=== PATIENT | female | born 1955 | race Caucasian/White ===

== ENCOUNTER → 2020-03-26 16:06 | Outpatient (CLI) | payer BC, MEDICARE, SELFPAY ==
--- NOTE | 2020-03-26 16:09 | CA_ITS ---
APPROVED REPORT Left Lower Extremity Venous Study for DVT. Welt Stitcher: FOREIGN WatkinsT Indications Lower Extremity Pain: Left History of Smoking KNOT POST LT CALF X SEVERAL DAYS,NKI Vein Imaging CFV (L): compressive, spontaneous, phasic, augmentation FEM (L): compressive, spontaneous, phasic, augmentation POP (L): compressive, spontaneous, phasic, augmentation PTV (L): Compressible GSV (L): Compressible Peroneals (L):Compressible GAS (L): Compressible Findings Study suggests no evidence of DVT of the left lower extremity. A SVT is seen posterior mid calf. Conclusion Study suggests no evidence of DVT of the left lower extremity. A SVT is seen posterior mid calf. Critical Notification Physician Notified Date: 03/26/2020 Time: 16:32 Physician Name: Brandy Colorado Electronically signed by : Kei Yuan MD 03/27/2020 15:42:09
== END ==
PROVIDERS: PCP Nurse Practitioner; Visit Provider Nurse Practitioner
DX: M79.662 Pain in left lower leg (principal)
CPT/HCPCS: 93971

== ENCOUNTER → 2020-09-03 15:13 | Outpatient (CLI) | payer BC, MEDICARE, SELFPAY ==
--- NOTE | 2020-09-03 | CA_ITS ---
APPROVED REPORT Left Lower Extremity Venous Study for DVT. Quality Cloth Tester: Belkis Covarrubias, FOREIGNT Indications Lower Extremity Pain: Left Varicose Veins Current Smoker PALPABLE KNOT MEDIAL LEFT KNEE Risk Factors Prior Phlebitis/DVT Current Smoker Past History SVT : Left Vein Imaging CFV (L): compressive, spontaneous, phasic, augmentation FEM (L): compressive, spontaneous, phasic, augmentation POP (L): compressive, spontaneous, phasic, augmentation PTV (L): Compressible GSV (L): Compressible Peroneals (L):Compressible GAS (L): Compressible Findings Study suggests no evidence of DVT of the left lower extremity. Study suggets an SVT in a superficial varicose vein located medial left knee. Conclusion Study suggests no evidence of DVT of the left lower extremity. Study suggets an SVT in a superficial varicose vein located medial left knee. Critical Notification Physician Notified Date: 09/03/2020 Time: 15:58 Physician Name: Annie Colorado Electronically signed by : Kei Yuan MD 09/03/2020 17:41:08
== END ==
PROVIDERS: PCP Family Medicine; Visit Provider Nurse Practitioner
DX: M25.562 Pain in left knee (principal); M79.605 Pain in left leg
CPT/HCPCS: 93971

== ENCOUNTER → 2022-07-02 15:00 | Outpatient (CLI) | payer MEDICARE, OTHER, SELFPAY | PROVIDERS: PCP Nurse Practitioner; Visit Provider Nurse Practitioner | DX: N30.01 Acute cystitis with hematuria (principal); B96.29 Other Escherichia coli [E. coli] as the cause of diseases classified elsewhere | CPT/HCPCS: 87086; 87088; 87186 ==

== ENCOUNTER → 2022-07-29 13:50 | Outpatient (CLI) | payer MEDICARE, OTHER, SELFPAY ==
[2022-07-29 17:31] LABS: Basophils # 0.1 K/mm3 (0-0.2); Basophils % 0.9 % (0.1-2.0); Eosinophils # 0.2 K/mm3 (0.0-0.4); Eosinophils % 1.4 % (0.1-12.0); Hematocrit 43.7 % (37.0-47.0); Hemoglobin 14.4 g/dL (12.2-16.2); Lymphocytes # 3.1 K/mm3 (0.7-4.5); Lymphocytes % 25.4 % (10-50); Mean Corpuscular HGB Conc 32.9 g/dL (31.8-35.4); Mean Corpuscular Hemoglobin 30.8 pg (27.0-31.2); Mean Corpuscular Volume 93.5 fl (81-99); Mean Platelet Volume 8.7 fl (7.4-10.4); Monocytes # 0.5 K/mm3 (0.1-1.0); Monocytes % 4.4 % (1.7-9.3); Neutrophils # 8.4 K/mm3 (1.8-7.8); Platelet Count 522 K/mm3 (142-424); Red Blood Count 4.67 M/mm3 (4.20-5.40); Red Cell Distribution Width 13.4 % (11.5-17.5); White Blood Count 12.4 K/mm3 (4.8-10.8)
== END ==
PROVIDERS: PCP Nurse Practitioner; Visit Provider Nurse Practitioner
DX: J18.9 Pneumonia, unspecified organism (principal); R05.9 Cough, unspecified
CPT/HCPCS: 85025

== ENCOUNTER 2023-09-14 16:15 | Outpatient (CLI) | payer MEDICARE, OTHER, SELFPAY ==
--- NOTE | 2023-09-14 16:21 | XR_ITS ---
PROCEDURE INFORMATION: Exam: XR Right Humerus Exam date and time: 09/14/2023 4:22 PM Age: 68 years old Clinical indication: Pain; Upper arm; Right; Additional info: Right upper arm pain TECHNIQUE: Imaging protocol: Radiologic exam of the right humerus. Views: 2 or more views. COMPARISON: No relevant prior studies available. FINDINGS: Bones/joints: Normal. Soft tissues: Normal. IMPRESSION: No acute findings.
== END 2023-09-14 23:59 ==
LOC: RAD 16:18
PROVIDERS: PCP Nurse Practitioner; Visit Provider Nurse Practitioner
DX: M79.621 Pain in right upper arm (principal)
CPT/HCPCS: 73060

== ENCOUNTER 2023-11-14 15:22 | Emergency (ER) | payer MEDICARE, OTHER, SELFPAY ==
[2023-11-14 15:40] VITALS: BP 137/82; PULSE 74; RESP 18; TEMP 36.7; O2SAT 97; BMI 29.0
--- NOTE | 2023-11-14 15:41 | EXP.UTC ---
Discharge Plan Disposition Patient Disposition: Home, Self-Care Condition: Good Prescriptions Prescriptions: New phenazopyridine [Pyridium] 200 mg tablet 200 mg PO Q8H 2 Days Qty: 6 0RF ondansetron 4 mg Tablet,Disintegrating 4 mg PO Q8H PRN (Reason: Nausea) Qty: 12 0RF ciprofloxacin HCl [Cipro] 500 mg tablet 500 mg PO BID 7 Days Qty: 14 0RF Referrals Follow up/Referrals: Brandy Colorado APRN [Primary Care Provider] - See instructions Activity Restrictions/Add. Instructions Additional Instructions/Restrictions: Drink plenty of fluids. Take tylenol or ibuprofen for pain or fever. Take the medications as directed. Follow up with your regular doctor. GO TO THE ER FOR ANY WORSENING SYMPTOMS The pyridium will make your urine turn orange, this is an expected side effect. It will stain your clothes if it comes into contact with them. We will culture the urine. That will tell what bacteria is causing your infection and which antibiotics will treat it best. Sometimes the first antibiotic we prescribe turns out to not work against different bacteria. So, make sure you follow up within 3 days if you are not getting better. Clinical Impressions Clinical Impression: UTI (urinary tract infection), uncomplicated Instructions Patient Instructions: Urine Culture, DI for Urinary Tract Infection (UTI), Ondansetron, Phenazopyridine Discharge ED Provider: Prudencio Cook [facility] General Stated complaint: Frequency with urination and blood Time Seen by Provider: 11/14/23 15:41 History of Present Illness Provider Complaint: She states that for the past 2 days she has had urinary frequency, dysuria, urgency and low back pain. Related Data Previous Rx's Medication Instructions Recorded ciprofloxacin HCl 500 mg tablet 500 mg PO BID 7 days #14 tabs 11/14/23 (Cipro) ondansetron 4 mg disintegrating 4 mg PO Q8H PRN Nausea #12 tabs 11/14/23 tablet phenazopyridine 200 mg tablet 200 mg PO Q8H 2 days #6 tabs 11/14/23 (Pyridium) Allergies Allergy/AdvReac Type Severity Reaction Status Date / Time Penicillins Allergy Severe Unknown Verified 10/08/23 13:01 allergy reaction Sulfa (Sulfonamide Allergy Severe Unknown Verified 10/08/23 13:01 Antibiotics) allergy reaction codeine AdvReac Severe Unknown Verified 10/08/23 13:01 allergy reaction Opioid Allergy Unknown Uncoded 10/08/23 13:01 Tetracycline Allergy Unknown Uncoded 10/08/23 13:01 [facility] Disclaimer: The information contained in this section may have been updated after the patient was seen, as this information can be updated by other users. Social History Smoking Status: Current every day smoker tobacco type: cigarettes packs per day: 2 alcohol intake: never current occupational status: employed and retired Travel in the last 8 weeks: None ROS Obtained: Yes All systems reviewed & no additional complaints except as documented Constitutional Constitutional: Reports system reviewed and no additional complaints, except as documented, Denies chills and Denies fever(s) Eyes Eyes: Denies eye discharge ENT Ears, Nose, Mouth, and Throat: Denies dysphagia, Denies sore throat and Denies throat swelling Cardiovascular Cardiovascular: Denies chest pain and Denies dyspnea Respiratory Respiratory: Denies chest congestion, Denies cough and Denies dyspnea Gastrointestinal Gastrointestingal: Denies abdominal pain, constipation, diarrhea, dysphagia, nausea or vomiting Genitourinary Female Genitourinary: Reports as per HPI, Reports dysuria, Reports urinary frequency, Denies urinary incontinence, Reports urinary hesitancy and Reports urinary urgency Musculoskeletal Musculoskeletal: Denies arthralgias and Reports back pain Integumentary/Breasts Skin/Breast: Denies rash Neurologic Neurologic: Denies paresthesias Allergic/Immunologic Allergic/Immunologic: Denies throat swelling Physical Exam General General appearance: alert and in no apparent distress Head Head exam: atraumatic and normocephalic Eye Eye exam: Present normal appearance, PERRL and EOMI ENT ENT exam: Present normal exam, mucous membranes moist, TM's normal bilaterally and normal external ear exam Neck Neck exam: Present normal inspection, full ROM and trachea midline; Absent tenderness, meningismus or lymphadenopathy Chest Chest inspection: Present normal inspection and symmetric chest wall rise; Absent tenderness Respiratory Respiratory exam: Present normal lung sounds bilaterally; Absent respiratory distress, wheezes or stridor Cardiovascular Cardiovascular exam: Present regular rate, normal rhythm and normal heart sounds Abdominal Exam Abdominal exam: Present soft and normal bowel sounds; Absent distention, tenderness, guarding, rebound, rigidity, incision, psoas sign, obturator sign, heel tap sign, Cavazos's sign, Rovsing's sign or tenderness at McBurney's Point Extremities Exam Extremities exam: Present normal inspection, full ROM and normal capillary refill; Absent tenderness, edema, joint swelling, calf tenderness or cyanosis Back Exam Back exam: Present normal inspection and full ROM; Absent tenderness, CVA tenderness (R) or CVA tenderness (L) Neurological Exam Neurological exam: Present alert, oriented X3 and normal gait Psychiatric Psychiatric exam: Present normal affect and normal mood Skin Skin exam: Present warm, dry, intact and normal color Lymphatic Lymphatic Findings: no adenopathy Medical Decision Making Medical Records Medical records reviewed: No I reviewed the patient's medical records. Raymond Inquiry Pt receiving controlled substance: No Lab Data Lab results reviewed: Yes I reviewed the patient's lab results.
[2023-11-14 15:44] LABS: Color,Urine Dark Yellow (Yellow)
[2023-11-14 15:45] LABS: Apearance,Urine Cloudy (Clear); Bilirubin,Urine Negative (Negative); Blood, Urine 3+ (Negative); Glucose,Urine (UA) Negative (Negative); Ketones,Urine Negative (Negative); Protein,Urine 1+ (Negative); UTC Leukocyte Esterase,Urine 1+ (Negative); UTC Nitrate,Urine Negative (Negative); Urobilinogen,Urine 1 EU/dl (0.2)
[2023-11-14 15:51] VITALS: BP 137/82; PULSE 74; RESP 18; TEMP 36.7; O2SAT 97
== END 2023-11-14 16:18 | disposition home or self-care (01) ==
PROVIDERS: Emergency Provider Nurse Practitioner Family; PCP Nurse Practitioner
DX: N39.0 Urinary tract infection, site not specified (principal); B96.29 Other Escherichia coli [E. coli] as the cause of diseases classified elsewhere; M54.59 Other low back pain; F17.210 Nicotine dependence, cigarettes, uncomplicated
CPT/HCPCS: 81003; 87086; 99212; 99214; G0463

== ENCOUNTER 2024-04-25 11:42 | Outpatient (CLI) | payer MEDICARE, OTHER, SELFPAY ==
[2024-04-25 19:49] LABS: Basophils # 0.1 K/mm3 (0-0.2); Eosinophils # 0.1 K/mm3 (0.0-0.4); Eosinophils % 1.2 % (0.1-12.0); Hematocrit 48.7 % (37.0-47.0); Lymphocytes # 3.3 K/mm3 (0.7-4.5); Lymphocytes % 32.5 % (10-50); Mean Corpuscular HGB Conc 30.7 g/dL (31.8-35.4); Mean Platelet Volume 10.2 fl (7.4-10.4); Monocytes # 0.5 K/mm3 (0.1-1.0); Monocytes % 4.6 % (1.7-9.3); Neutrophils # 6.2 K/mm3 (1.8-7.8); Neutrophils % 60.7 % (37.0-80.0); Platelet Count 476 K/mm3 (142-424); Red Blood Count 4.83 M/mm3 (4.20-5.40); Red Cell Distribution Width 13.8 % (11.5-17.5); White Blood Count 10.3 K/mm3 (4.8-10.8)
[2024-04-25 20:21] LABS: Alanine Aminotransferase 22 U/L (12-78); Albumin Level 4.3 g/dl (3.5-5.0); Albumin/Globulin Ratio 1.3 (1.1-1.8); Alkaline Phosphatase 112 U/L (38-126); Anion Gap 14.4 mEq/L (5-15); Aspartate Amino Transferase 26 U/L (14-36); Bilirubin,Total 0.9 mg/dl (0.2-1.3); Blood Urea Nitrogen 21 mg/dl (7-17); Calcium 9.4 mg/dl (8.4-10.2); Carbon Dioxide 24 mmol/L (22.0-30.0); Chloride 101 mmol/L (98-107); Chol/HDL Ratio 6.2 (1-3.5); Cholesterol 267 mg/dl (140-200); Estimated Glomerular Filt Rate 55 ml/min (>60); GFR (African American) 67 ML/MIN (>60); Globulin 3.4 g/dL (1.3-3.2); Glucose 119 mg/dl (74-100); HDL Cholesterol 43 mg/dl (40-60); Potassium 4.4 mmoL/L (3.5-5.1); Sodium 135 mmol/L (136-145); Total Protein,Serum 7.7 g/dl (6.3-8.2); Triglycerides 210 mg/dl (30-150); VLDL Cholesterol 42 mg/dL (0-40)
[2024-04-25 20:27] LABS: Microalbumin/Creatinine Ratio 8.7
[2024-04-25 20:33] LABS: Direct LDL Cholesterol 184.28 mg/dL (100-129)
[2024-04-25 20:38] LABS: Creatinine,Urine Random 86 mg/dL (Not Estab.)
[2024-04-25 21:15] LABS: Hemoglobin A1C 5.8 % (4.0-6.0)
== END 2024-04-25 23:59 | disposition home or self-care (01) ==
LOC: LAB.DROPOF 04-26 11:44
PROVIDERS: PCP Nurse Practitioner; Visit Provider Nurse Practitioner
DX: I16.0 Hypertensive urgency (principal); Z13.1 Encounter for screening for diabetes mellitus; I10 Essential (primary) hypertension; F17.210 Nicotine dependence, cigarettes, uncomplicated
CPT/HCPCS: 80053; 80061; 82043; 82570; 83036; 84443; 85025

== ENCOUNTER 2024-05-18 14:14 | Outpatient (CLI) | payer MEDICARE, OTHER, SELFPAY ==
[2024-05-18 19:02] LABS: Alanine Aminotransferase 16 U/L (12-78); Albumin Level 4.1 g/dl (3.5-5.0); Albumin/Globulin Ratio 1.4 (1.1-1.8); Alkaline Phosphatase 109 U/L (38-126); Anion Gap 10.4 mEq/L (5-15); Aspartate Amino Transferase 20 U/L (14-36); Bilirubin,Total 0.5 mg/dl (0.2-1.3); Blood Urea Nitrogen 31 mg/dl (7-17); Calcium 9.5 mg/dl (8.4-10.2); Carbon Dioxide 26 mmol/L (22.0-30.0); Chloride 103 mmol/L (98-107); Estimated Glomerular Filt Rate 49 ml/min (>60); GFR (African American) 60 ML/MIN (>60); Glucose 120 mg/dl (74-100); Potassium 4.4 mmoL/L (3.5-5.1); Sodium 135 mmol/L (136-145); Total Protein,Serum 7.1 g/dl (6.3-8.2)
== END 2024-05-18 23:59 | disposition home or self-care (01) ==
LOC: LAB.DROPOF 05-19 10:57
PROVIDERS: PCP Nurse Practitioner; Visit Provider Nurse Practitioner
DX: I10 Essential (primary) hypertension (principal); E78.5 Hyperlipidemia, unspecified; R73.01 Impaired fasting glucose; H61.23 Impacted cerumen, bilateral; M54.2 Cervicalgia; R06.02 Shortness of breath; R42 Dizziness and giddiness
CPT/HCPCS: 80053

== ENCOUNTER 2024-05-23 10:47 | Outpatient (CLI) | payer MEDICARE, OTHER, SELFPAY ==
--- NOTE | 2024-05-23 10:53 | CA_ITS ---
FINAL REPORT TECHNIQUE: Color Doppler, duplex Doppler and brooks scale sonography of the bilateral neck vasculature was performed. Velocities were measured in the carotid arteries. Stenosis evaluation based on velocity criteria. CLINICAL HISTORY: unsteady, neck pain on left side,htn,hld,smoker COMPARISON: None FINDINGS: The peak systolic velocity of the right common carotid artery is 79 cm/sec and internal carotid artery 168 cm/sec. The diastolic velocity in the internal carotid artery is 56 cm/sec. The ICA/CCA ratio is 2.15. Visually, a moderate amount of plaque is seen. These findings are consistent with less than 50% stenosis. The external carotid artery is patent. The right vertebral artery is patent with antegrade flow. The peak systolic velocity of the left common carotid artery is 82 cm/sec and internal carotid artery 146 cm/sec. The diastolic velocity in the internal carotid artery is 51 cm/sec. The ICA/CCA ratio is 1.8. Visually, a moderate amount of plaque is seen.. These findings are consistent with less than 50% stenosis. The external carotid artery is patent. The left vertebral artery is patent with antegrade flow. IMPRESSION: No evidence of significant carotid stenosis. Bilateral patent vertebral arteries. If indicated, CTA or MRA could further evaluate. Reviewed, Interpreted and Dictated by Corona Rivas III, MD Transcribed by Rosi Babcock Authenticated and [facility]
== END 2024-05-23 23:59 | disposition home or self-care (01) ==
LOC: RT 10:50
PROVIDERS: PCP Nurse Practitioner; Visit Provider Nurse Practitioner
DX: R42 Dizziness and giddiness (principal)
CPT/HCPCS: 93880

== ENCOUNTER 2024-12-13 14:25 | Outpatient (CLI) | payer MEDICARE, OTHER, SELFPAY ==
[2024-12-13 19:30] LABS: Microalbumin/Creatinine Ratio 18.6
[2024-12-13 19:50] LABS: Alanine Aminotransferase 15 U/L (12-78); Albumin/Globulin Ratio 1.4 (1.1-1.8); Alkaline Phosphatase 113 U/L (38-126); Anion Gap 10.1 mEq/L (5-15); Aspartate Amino Transferase 19 U/L (14-36); Bilirubin,Total 0.7 mg/dl (0.2-1.3); Blood Urea Nitrogen 8 mg/dl (7-17); Calcium 9.1 mg/dl (8.4-10.2); Carbon Dioxide 23 mmol/L (22.0-30.0); Chloride 110 mmol/L (98-107); Estimated Glomerular Filt Rate 83 ml/min (>60); GFR (African American) 100 ML/MIN (>60); Globulin 2.8 g/dL (1.3-3.2); Glucose 106 mg/dl (74-100); Potassium 4.1 mmoL/L (3.5-5.1); Sodium 139 mmol/L (136-145); Total Protein,Serum 6.8 g/dl (6.3-8.2)
[2024-12-13 19:55] LABS: Creatinine,Urine Random 190 mg/dL (Not Estab.)
[2024-12-13 19:56] LABS: Hemoglobin A1C 5.6 % (4.0-6.0)
== END 2024-12-13 23:59 | disposition home or self-care (01) ==
LOC: LAB.DROPOF 12-15 12:58
PROVIDERS: PCP Nurse Practitioner; Visit Provider Nurse Practitioner
DX: E78.5 Hyperlipidemia, unspecified (principal); I10 Essential (primary) hypertension; R73.01 Impaired fasting glucose; N10 Acute pyelonephritis
CPT/HCPCS: 80053; 82043; 82570; 83036; 87086; 87088; 87186

== ENCOUNTER 2025-03-23 16:30 | Outpatient (CLI) | payer MEDICARE, OTHER, SELFPAY ==
--- OUTSIDE RECORDS SUMMARY | 2025-03-24 10:31 | XMS_ITS | Clinical Summary ---
Author Organization [facility] Address [address] [place] [address] Phone Care Team Providers Care Film Washer Name Role Phone Unavailable Primary Care Provider Unavailabl e Social History Tobacco Use Types Packs/Day Years Used Date Smoking Tobacco: Never Assessed Comments Unknown Sex and Gender Information Value Date Recorded Sex Assigned at Not on file Legal Sex Female 3:55 PM EDT Gender Identity Not on file Sexual Orientation Not on file Last Filed Vital Signs Vital Sign Reading Time Taken Comments Blood Pressure 143/73 03/25/2017 11:00 AM EDT Pulse - - Temperature - - Respiratory Rate - - Oxygen Saturation - - Inhaled Oxygen Concentration - - Weight 93 kg (205 lb) 03/25/2017 11:00 AM EDT Height 167.6 cm (5' 6 ) 03/25/2017 11:00 AM EDT Body Mass Index 33.09 03/25/2017 11:00 AM EDT Plan of Treatment Health Maintenance Due Date Last Done Comments Annual Wellness Exam 1958 Hepatitis C Screening 1972 DTaP/TDaP/Td (1 - Tdap) 1973 Cologuard 1999 Colon Cancer Screening 1999 Colonoscopy 1999 FIT 1999 Sigmoidoscopy 1999 Virtual Colonography 1999 Pneumococcal Vaccine 50+ (1 of 1 - PCV) 2004 Zoster (1 of 2) 2004 Bone Density Screening 2019 COVID-19 Vaccine ( - 2023-2 5 season) 2024 Influenza Vaccine (#1) 2025 Hepatitis B Vaccine Aged Out No longe r eligible based on patient's age to complete this topic Meningococcal B Vaccine Aged Out No l onger eligible based on patient's age to complete this topic
== END 2025-03-23 23:59 | disposition home or self-care (01) ==
LOC: LAB.DROPOF 03-24 10:28
PROVIDERS: PCP Nurse Practitioner; Visit Provider Nurse Practitioner
DX: T81.42XA Infection following a procedure, deep incisional surgical site, initial encounter (principal); C44.612 Basal cell carcinoma of skin of right upper limb, including shoulder; Z48.02 Encounter for removal of sutures
CPT/HCPCS: 87070; 87205

== ENCOUNTER 2025-05-01 14:00 | Outpatient (CLI) | payer MEDICARE, OTHER, SELFPAY ==
[2025-05-01 21:24] LABS: Alanine Aminotransferase 13 U/L (12-78); Albumin Level 4.3 g/dl (3.5-5.0); Albumin/Globulin Ratio 1.5 (1.1-1.8); Alkaline Phosphatase 96 U/L (38-126); Anion Gap 10.9 mEq/L (5-15); Aspartate Amino Transferase 19 U/L (14-36); Bilirubin,Total 0.4 mg/dl (0.2-1.3); Blood Urea Nitrogen 14 mg/dl (7-17); Calcium 9.1 mg/dl (8.4-10.2); Carbon Dioxide 23 mmol/L (22.0-30.0); Chloride 109 mmol/L (98-107); Cholesterol 228 mg/dl (140-200); Creatinine,Serum 0.70 mg/dl (0.52-1.04); Estimated Glomerular Filt Rate 83 ml/min (>60); GFR (African American) 100 ML/MIN (>60); Globulin 2.9 g/dL (1.3-3.2); Glucose 108 mg/dl (74-100); HDL Cholesterol 44 mg/dl (40-60); Potassium 4.9 mmoL/L (3.5-5.1); Sodium 138 mmol/L (136-145); Total Protein,Serum 7.2 g/dl (6.3-8.2); Triglycerides 158 mg/dl (30-150)
[2025-05-01 22:15] LABS: Hemoglobin A1C 5.6 % (4.0-6.0)
--- OUTSIDE RECORDS SUMMARY | 2025-05-02 09:20 | XMS_ITS | Clinical Summary ---
Author Organization [facility] Address [address] [place] [address] Phone Care Team Providers Care Cable Installer Repairer Name Role Phone Unavailable Primary Care Provider [...] 2004 Bone Density Screening 2019 COVID-19 Vaccine (2023-2 5 season) 2025 Influenza Vaccine (#1) 2025 Hepatitis B Vaccine Aged Out No longe r eligible based on patient's age to complete this topic Meningococcal B Vaccine Aged Out No l onger eligible based on patient's age to complete this topic
== END 2025-05-01 23:59 | disposition home or self-care (01) ==
LOC: LAB.DROPOF 05-02 08:50
PROVIDERS: PCP Nurse Practitioner; Visit Provider Nurse Practitioner
DX: E78.5 Hyperlipidemia, unspecified (principal); I10 Essential (primary) hypertension; R73.01 Impaired fasting glucose; N39.0 Urinary tract infection, site not specified; I73.9 Peripheral vascular disease, unspecified
CPT/HCPCS: 80053; 80061; 83036; 87086

== ENCOUNTER 2025-05-09 14:33 | Outpatient (CLI) | payer MEDICARE, OTHER, SELFPAY ==
--- NOTE | 2025-05-09 14:30 | US_ITS ---
FINAL REPORT CLINICAL HISTORY: claudication - bilateral, smoker FINDINGS: ANKLE-BRACHIAL PRESSURE INDICES Pressure indices are as follows: RIGHT LOWER EXTREMITY: Ankle-brachial pressure index: 0.88 Comments: Mild to moderate disease LEFT LOWER EXTREMITY: Ankle-brachial pressure index: 0.48 Comments: Mild to moderate disease IMPRESSION: Mild to moderate obstructive peripheral vascular disease of the bilateral lower extremities Reviewed, Interpreted and Dictated by Virginia Raymond MD Transcribed by Ligia Harrison Authenticated and [facility]
--- OUTSIDE RECORDS SUMMARY | 2025-05-09 14:36 | XMS_ITS | Clinical Summary ---
Author Organization [facility] Address [address] [place] [address] Phone Care Team Providers Care Network Program Manager Name Role Phone Unavailable Primary Care Provider [...]
--- NOTE | 2025-05-09 15:00 | CA_ITS ---
FINAL REPORT CLINICAL HISTORY: claudication, Smoker, HTN FINDINGS: BILATERAL LOWER EXTREMITY DUPLEX DOPPLER Color Doppler and duplex Doppler of the bilateral lower extremity was performed. Spectral analysis was also performed. Velocities were measured at multiple levels. All velocities are in centimeters per second. RIGHT [place] [employer]: 218 Prof: 101 SFA Prox: 137 SFA Mid: 170 SFA Distal: 109 ACCREDITATION SPECIALIST Mid: 85 ACCREDITATION SPECIALIST Dist: 109 YUNIOR mid: 67 Per Mid: 109 Waveforms are biphasic. No evidence of vessel occlusion. Mild plaque is seen. LEFT [place] [employer]: 126 Prof: 402 SFA Prox: 128 SFA Mid: 87 SFA Distal: 91 ACCREDITATION SPECIALIST Mid: 43 ACCREDITATION SPECIALIST Dist: 41 YUNIOR mid: 31 Per Prox: 43 Waveforms are monophasic. Elevated velocities in the profunda with moderate plaque. No evidence of occlusion. IMPRESSION: No evidence of vessel occlusion. Mild atherosclerosis on the right with moderate to severe disease on the left. Reviewed, Interpreted and Dictated by Virginia Raymond MD Transcribed by Ligia Harrison Authenticated and [facility]
== END 2025-05-09 23:59 | disposition home or self-care (01) ==
LOC: RT 14:34
PROVIDERS: PCP Nurse Practitioner; Visit Provider Nurse Practitioner
DX: I70.203 Unspecified atherosclerosis of native arteries of extremities, bilateral legs (principal); I10 Essential (primary) hypertension; F17.200 Nicotine dependence, unspecified, uncomplicated
CPT/HCPCS: 93923; 93925

== ENCOUNTER 2025-06-19 15:41 | Emergency (ER) | payer MEDICARE, OTHER, SELFPAY ==
--- OUTSIDE RECORDS SUMMARY | 2025-06-06 09:20 | XMS_ITS | Encounter Summary ---
Author Organization Healthcare Address [address] [id number] Care Team Providers Care Pharmaceutical Process Engineer Name Role Phone Brandy Colorado APRN Primary Care Provider [phone] Reason for Referral * Imaging (Routine) - Pending Review Specialty Diagnoses / Procedures Referred By Contac t Referred To Contact Cardiology Diagnoses PAD (peripheral artery disease) Pain in both lower extremities Claudication (CMS/HCC) Procedures VAS US Arterial Duplex Lower Extremity Bilateral Casimiro Irving APRN [address] [address] Phone: tel: fax: Referral ID Status Reason Start Date Expiration Date Visits Requested Visits Authorized [id number] Pending Review Perform Procedure 5 12/06/2026 1 1 * Imaging (Routine) - Pending Review Specialty Diagnoses / Procedures Referred By Contac t Referred To Contact Cardiology Diagnoses Venous insufficiency Varicose veins of left lower extremity with pain Procedures VAS US Venous Duplex Lower Extremity Bilateral Reflux Casimiro Irving APRN [address] [facility] [address] [place] [address] Phone: tel: fax: Referral ID Status Reason Start Date Expiration Date Visits Requested Visits Authorized [id number] Pending Review Perform Procedure 5 12/06/2026 1 1 * Imaging (Routine) - Pending Review Specialty Diagnoses / Procedures Referred By Contac t Referred To Contact Cardiology Diagnoses PAD (peripheral artery disease) Pain in both lower extremities Claudication (CMS/HCC) Procedures VAS Ankle Brachial Index - Segmental Casimiro Irving, DARRYL [address] [facility] [address] [place] [address] Phone: tel: fax: Referral ID Status Reason Start Date Expiration Date Visits Requested Visits Authorized [id number] Pending Review Perform Procedure 12/06/2026 1 1 Reason for Visit * Reason Comments Peripheral Artery Disease * Consultation (Urgent) - Closed Specialty Diagnoses / Procedures Referred By Contact Referred To Contact Vascular Surgery / [facility] Diagnoses Peripheral artery disease Brandy Colorado, DARRYL [address] [place] [address] Phone: tel:[phone] fax:[phone] [facility] [address] [place] [address] Phone: tel: fax: Referral ID Status Reason Start Date Expiration Date V isits Requested Visits Authorized [id number] Closed Specialty Services Required 05/18/2025 11/17/2026 1 1 Encounter Details Date Type Department Care Team (Latest Contact Info) Description 06/06/2025 10:20 AM EDT Office Visit [facility] [address] [facility] [address] [facility] [address] [place] [address] Casimiro Irving APRN [id number] [place] [id number] Venous insufficiency (Primary Dx); PAD (peripheral artery disease); Pain in both lower extremities; Claudication (CMS/HCC); Varicose veins of left lower extremity with pain Social History Tobacco Use Types Packs/Day Years Used Date Smoking Tobacco: Every Day Cigarettes Smokeless Tobacco: Never Tobacco Cessation:Ready to Q uit: No; Counseling Given: Not Answered AUDIT-C Answer Date Recorded Q1: How often do you have a drink containing alc ohol? Never 06/06/2025 Average Number of Drinks Not on file 025 Frequency of Binge Drinking Not on file 05/18 Comments Unknown Sex and Gender Information Value Date Recorded Sex Assigned at Not on file Legal Sex Female 10:16 AM EDT Gender Identity Not on file Sexual Orientation Not on file documented as of this encounter Last Filed Vital Signs Vital Sign Reading Time Taken Comments Blood Pressure 131/62 06/06/2025 10:39 AM EDT Pulse 71 06/06/2025 10:39 AM EDT Temperature 36.5 C (97.7 F) 06/06/2025 10:27 AM EDT Respiratory Rate - - Oxygen Saturation - - Inhaled Oxygen Concentration - - Weight 89.7 kg (197 lb 12 oz) 06/06/2025 10:27 A M EDT Height 165.1 cm (5' 5 ) 06/06/2025 10:27 AM EDT Body Mass Index 32.91 06/06/2025 10:27 AM EDT documented in this encounter Functional Status documented as of this encounter Miscellaneous Notes * Progress Notes - Casimiro Irving APRN - 06/06/2025 10:20 AM EDT Dear Brandy Colorado APRN, HPI Edgar Apple is a 70 year old female who was seen in clinic for consultation regarding her bilateral leg pain. She states she has had episodes where she feels as if her legs are not receiving enough blood flow and will wear out. She also states she has had varicose veins accumulate on her left lower extremity. She is not wearing compression garment. OSH vascular imaging is notable for increased velocities in the left profunda femoral artery at 402 cm/s. She states she can walk for around 20 minutes before she starts to experience claudicating symptoms. She is currently maintained on ASA, plavix, and statin. She currently smokes 2 PPD of cigarettes, Her chronic comorbid conditions that impact our treatment planning include: There are no active problems to display for this patient. The following portions of the chart were reviewed this encounter and updated as appropriate: Tobacco Allergies Meds Problems Med Hx Surg Hx Fam Hx Subjective Review of Systems A 14 point ROS was obtained and is negative otherwise noted in HPI. Objective Physical Exam Constitutional: well developed, well nourished, and in no acute distress Skin: [place], warm, well perfused Venous: CEAP 2 - Varicose veins Respiratory: Patient is alert and in no acute respiratory distress. Respirations are even and unlabored, with no use of accessory muscles. Oxygen saturation stable on room air per vitals. Cardiac: Cardiovascular status assessed by vital signs and perfusion. Blood pressure and heart ratereviewed and stable. Skin is warm and well perfused. Capillary refill < 3 seconds. No complaintsof chest pain, palpitations, dizziness, or shortness of breath reported during visit. Assessment/Plan In Summary: Edgar Apple is a 70 y.o. year old female who we saw today in clinic. She will require vascular imaging to determine extent of venous and arterial disease. I have instructed the patient to continue current medication regimen. I will f/u with her in 1 month with imaging. Below is a summary of the diagnoses addressed in today's visit and any associated orders: - f/u in 1 month with vascular imaging. - Continue current medication regimen. - Monitor for any worsening of condition. ED precautions. Problem List Items Addressed This Visit None Visit Diagnoses Venous insufficiency - Primary Relevant Orders VAS US Venous Duplex Lower Extremity Bilateral Reflux PAD (peripheral artery disease) Relevant Orders VAS Ankle Brachial Index - Segmental VAS US Arterial Duplex Lower Extremity Bilateral Pain in both lower extremities Relevant Orders VAS Ankle Brachial Index - Segmental VAS US Arterial Duplex Lower Extremity Bilateral Claudication (CMS/HCC) Relevant Orders VAS Ankle Brachial Index - Segmental VAS US Arterial Duplex Lower Extremity Bilateral Varicose veins of left lower extremity with pain Relevant Orders VAS US Venous Duplex Lower Extremity Bilateral Reflux We will see her back for: Follow up in about 4 weeks (around 07/04/2025) for Recheck. The patient was counseled on the importance of: - aspirin therapy for overall cardiovascular health - tobacco avoidance (a total time of 4-10 minutes was undertaken, addressing the role of tobacco incardiovascular disease and disease progression) - plavix therapy for stroke prevention - proper nutrition, exercise and maintaining a healthy weight. documented in this encounter Plan of Treatment Upcoming Encounters Date Type Department Care Team (Late st Contact Info) Description 07/17/2025 7:00 AM EST Appointment [facility] [address] [place] [address] 07/17/2025 7:30 AM EST Appointment [facility] [address] [place] [address] 07/17/2025 8:00 AM EST Appointment [facility] [address] [place] [address] 07/17/2025 9:00 AM EST Office Visit [facility] [address] [place] [address] Casimiro Irving, HANDICAPPER HARNESS RACING [address] [place] [address] Scheduled Orders Name Type Priority Associated Diagnoses Orde r Schedule VAS Ankle Brachial Index - Segmental Vascular Ultrasound Routine PAD (peripheral artery disease) Pain in both lower extremities Claudication (CMS/HCC) Expected: 07/07/2025 (Approximate), Expires: 12/08/2026 VAS US Venous Duplex Lower Extremity Bilateral Reflux Vascular Ultrasound Routine Venous insufficiency Varicose veins of left lower extremity with pain Expected: 07/07/2025 (Approximate), Expires: 12/08/2026 VAS US Arterial Duplex Lower Extremity Bilateral Vascular Ultrasound Routine PAD (peripheral artery disease) Pain in both lower extremities Claudication (CMS/HCC) Expected: 07/07/2025 (Approximate), Expires: 12/08/2026 documented as of this encounter Visit Diagnoses Diagnosis Venous insufficiency- Primary Unspecified venous (peripheral) insufficiency PAD (peripheral artery disease) Unspecified peripheral vascular disease Pain in both lower extremities Claudication (CMS/HCC) Unspecified peripheral vascular disease Varicose veins of left lower extremity with pain documented in this encounter Additional Health Concerns Assessment Noted Time A fall risk assessment has been complete d for the patient 06/06/2025 10:37 AM EDT A Body Mass Index follow-up plan has been documented for the patient 06/06/2025 11:29 AM EDT documented as of this encounter Care Teams Pharmaceutical Process Engineer Relationship Specialty Start Date End Date Brandy Colorado APRN [address] [place] [address] PCP - General 06/06/25 documented as of this encounter
[2025-06-19 16:32] VITALS: BP 160/68; PULSE 80; RESP 16; TEMP 36.8; O2SAT 99; BMI 32.9
[2025-06-19 16:37] VITALS: BP 160/68; PULSE 80; RESP 16; TEMP 36.8; O2SAT 97
--- OUTSIDE RECORDS SUMMARY | 2025-06-19 16:39 | XMS_ITS | Clinical Summary ---
Author Organization Shazia REBOLLEDO OD Address [address] [facility] [address] [place] [address] Phone Care Team Providers Care Back End Developer Name Role Phone Unavailable Primary Care Provider [...] 2004 Bone Density Screening 2019 COVID-19 Vaccine (2024-2 6 season) 2025 Influenza Vaccine (#1) 2025 Hepatitis B Vaccine Aged Out No longe r eligible based on patient's age to complete this topic Meningococcal B Vaccine Aged Out No l onger eligible based on patient's age to complete this topic
--- OUTSIDE RECORDS SUMMARY | 2025-06-19 16:39 | XMS_ITS | Encounter Summary ---
Author Organization Healthcare Address [address] [id number] Care Team Providers Care Outside Residential Sales Professional Name Role Phone Unavailable Primary Care Provider Unavailabl e Reason for Visit * Reason Onset Date Comments [facility] Same Day Appt/Overbook Request 05/22/2025 Encounter Details Date Type Department Care Team (Late st Contact Info) Description 05/22/2025 Telephone [facility] [address] 5th Floor [address] [place] [address] Armen Muniz MD [address] [facility] [address] [place] [address] [facility] Same Day Appt/Overbook Request Social History Tobacco Use Types Packs/Day Years Used Date Smoking Tobacco: Never Assessed Comments Unknown Sex and Gender Information Value Date Recorded Sex Assigned at Not on file Legal Sex Female 10:16 AM EDT Gender Identity Not on file Sexual Orientation Not on file documented as of this encounter Miscellaneous Notes * Telephone Encounter - Darion Marquez - 05/22/2025 1:14 PM EDT Same Day Appt/Overbook Request Reason for Call: New patient , referral in Epic shows completed but pending images, patient is calling to get that appt scheduled , not sure if the images have been received she says her images should be coming from [facility] in [place] , please follow-up Their phone # is [phone] Please also follow-up with patient Best contact number: Other: [phone] Optimal time of day to reach caller: ANYTIME Additional comments/information from caller: None Note: Please do not reply to this message. Follow-up communication and further actions as a result of this message need to be communicated with the patient directly, if the patient is not active onMyChart. If the patient is active on MyChart, they will receive notification of the communication/outcome via MyChart. documented in this encounter Plan of Treatment Upcoming Encounters Date Type Department Care Team (Late st Contact Info) Description 07/17/2025 7:00 AM EST Appointment [facility] [address] [place] [address] 07/17/2025 7:30 AM EST Appointment [facility] [address] [place] [address] 07/17/2025 8:00 AM EST Appointment [facility] [address] [place] [address] 07/17/2025 9:00 AM EST Office Visit [facility] [address] [place] [address] Casimiro Irving, WREATH MAKER [address] [place] [address] documented as of this encounter Visit Diagnoses Not on filedocumented in this encounter
--- OUTSIDE RECORDS SUMMARY | 2025-06-19 16:39 | XMS_ITS | Clinical Summary ---
Author Organization Healthcare Address [address] [place] [address] Care Team Providers Care Product Development Assistant Name Role Phone StanislavBrandy stark Lovely ANDREWS Primary Care Provider [phone] Allergies Active Allergy Reactions Criticality Noted Date Comments Penicillins Hives Medium 06/06/2025 Triamcinolone Itching Medium 06/06/2025 Medications amLODIPine (Norvasc) 5 MG tablet Take 1 tablet by mouth daily. 04/07/20 25 Active Aspirin Low Dose 81 MG EC tablet Take 1 tablet by mouth daily. 05/10/20 25 Active ciprofloxacin (Ciloxan) 0.3 % ophthalmic solution As Directed. PLEASE SEE ATTACHED DETAILED DIRECTIONS 05/26/20 25 Active clindamycin (Cleocin) 300 MG capsule take 1 capsule by mouth 3 times a day for 10 days 03/23/20 25 Active clopidogrel (Plavix) 75 MG tablet Take 1 tablet by mouth daily. 05/10/20 25 Active hydroCHLOROthi azide (HYDRODiuril) 25 MG tablet Take 1 tablet by mouth daily. 07/18/20 24 Active lisinopril 20 MG tablet Take 1 tablet by mouth daily. 03/29/20 25 Active rosuvastatin (Crestor) 20 MG tablet Take 1 tablet by mouth daily. 05/10/20 25 Active cefuroxime (Ceftin) 500 MG tablet Take 1 tablet by mouth 2 times a day. 05/01/20 25 025 Discontinued Active Problems No known active problems Encounters Date Type Department Care Team Description 06/06/2025 10:20 AM EDT Office Visit [facility] [address] [facility] 5th Floor [address] [place] [address] Casimiro Irving, DARRYL Venous insufficiency (Primary Dx); PAD (peripheral artery disease); Pain in both lower extremities; Claudication (CMS/HCC); Varicose veins of left lower extremity with pain 06/06/2025 Travel 05/22/2025 Telephone [facility] [address] [facility] 5th Floor [address] [place] [address] Armen Muniz MD [facility] Same Day Appt/Overbook Request 05/09/2025 Orders Only External Location [address] [place] [id number] Provider, External from Last 3 Months Family History Medical History Relation Name Comments Diabetes Maternal Grandmother Diabetes Mother Heart disease Mother Relation Name Status Comments Father Maternal Grandmother Mother Social History Tobacco Use Types Packs/Day Years [...] Mass Index 32.91 06/06/2025 10:27 AM EDT Plan of Treatment Upcoming Encounters Date Type Department Care Team (Late st Contact Info) Description 07/17/2025 7:00 AM EST Appointment [facility] [address] 5th Floor [address] [place] [address] 07/17/2025 7:30 AM EST Appointment [facility] [address] 5[address] Floor [address] [place] [address] 07/17/2025 8:00 AM EST Appointment [facility] [address] 5th Floor [address] [place] [address] 07/17/2025 9:00 AM EST Office Visit [facility] [address] [place] [address] Casimiro Irving, SALES REPRESENTATIVE [employer] [address] [place] [address] Health Maintenance Due Date Last Done Comments [facility]-Bone Density Scan 1954 [facility]-Depression Screening 1954 [facility]-Hepatitis C Screening 1954 [facility]-Medicare Annual Wellness (AWV) 1954 [facility]-/Child/Adol SDOH Screenings 1954 [facility]- SDOH Screenings 1972 [facility]-Adult SDOH Screenings 1972 [facility]-DTaP,Tdap,and Td Vaccines (1 - Tdap) 1973 CT Colonography 1999 Colonoscopy 1999 FIT-DNA 1999 FIT 1999 FOBT 1999 Sigmoidoscopy 1999 [facility]-Colorectal Cancer Screening 1999 [facility]-Breast Cancer Screening 2004 [facility]-Zoster Vaccines (1 of 2) 2004 [facility]-Pneumococcal Vaccine: 50+ Years (2 of 2 - PPSV23, PCV20, or PCV21) 08/24/2019 06/29/2019 [id number] Vaccine ( season) 2025 06/07/2023, 06/18/2022, 07/01/2021, Additional history exists [facility]-Influenza Vaccine (#1) 04/17/202506/17, 06/07/2023, 06/18/2022, Additional history exists [facility]-RSV Vaccine: 60+ Years or (1 - 1-dose 75+ series) 2029 [facility]-Obesity Intervention Completed 06/06/2025 HPV Vaccines Aged Out No longer eligi ble based on patient's age to complete this topic [facility]-HIB Vaccines Aged Out No longer e ligible based on patient's age to complete this topic [facility]-Hepatitis A Vaccines Aged Out No longer eligible based on patient's age to complete this topic [facility]-IPV Vaccines Aged Out No longer e ligible based on patient's age to complete this topic [facility]-Rotavirus Vaccines Aged Out No lo nger eligible based on patient's age to complete this topic Procedures Procedure Name Priority Date/Time Associated Diagnosis Comments US OUTSIDE IMAGES 05/09/2025 3:05 PM EDT from Last 3 Months Results * US OUTSIDE IMAGES (05/09/2025 3:05 PM EDT) Anatomical Region Laterality Modality Ultrasound 05/09/2025 3:05 PM EDT us External Provider IMG US PROCEDURES Final Result from Last 3 Months Insurance MEDICARE [facility] Care Teams Product Development Assistant Relationship Specialty Start Date End Date Brandy Colorado APRN [facility] [place] [address] PCP - General 06/06/25
--- OUTSIDE RECORDS SUMMARY | 2025-06-19 16:39 | XMS_ITS | Encounter Summary ---
Author Organization Healthcare Address [address] [place] [address] Care Team Providers Care Compressor House Operator Name Role Phone StanislavBrandy stark Lovely ANDREWS Primary Care Provider [phone] Encounter Details Date Type Department Care Team (Latest Contact Info) Description 06/06/2025 Travel Social History Tobacco Use Types Packs/Day Years Used Date Smoking Tobacco: Every Day Cigarettes Smokeless Tobacco: Never AUDIT-C Answer Date Recorded Q1: How often [...] on file documented as of this encounter Functional Status documented as of this encounter Plan of Treatment Upcoming Encounters Date Type Department Care Team (Late st Contact Info) Description 07/17/2025 7:00 AM EST Appointment [facility] [address] [facility] 5th Floor [address] [place] [address] 07/17/2025 7:30 AM EST Appointment [facility] [address] [facility] 5th Floor [address] [place] [address] 07/17/2025 8:00 AM EST Appointment [facility] [address] [facility] 5th Floor [address] [place] [address] 07/17/2025 9:00 AM EST Office Visit [facility] [address] Floor [address] [place] [address] Casimiro Irving, DARRYL [address] [facility] [address] [place] [address] documented as of this encounter Visit Diagnoses Not on filedocumented in this encounter Additional Health Concerns Assessment Noted Time A fall risk assessment has been complete d for the patient 06/06/2025 10:37 AM EDT A Body Mass Index follow-up plan has been documented for the patient 06/06/2025 11:29 AM EDT documented as of this encounter Care Teams Compressor House Operator Relationship Specialty Start Date End Date Brandy [place], DARRYL [address] [place] [address] PCP - General 06/06/25 documented as of this encounter
--- OUTSIDE RECORDS SUMMARY | 2025-06-19 16:39 | XMS_ITS | Encounter Summary ---
Author Organization Healthcare Address [address] [place] [address] Care Team Providers Care Master Tax Advisor Name Role Phone Unavailable Primary Care Provider Unavailabl e Encounter Details Date Type Department Care Team (Late Contact Info) Description 05/09/2025 Orders Only External Location [address] [place] [address] Provider, External Social History Tobacco Use Types Packs/Day Years Used Date Smoking Tobacco: Never Assessed Comments Unknown Sex and Gender Information Value Date Recorded Sex Assigned at Not on file Legal Sex Female 10:16 AM EDT Gender Identity Not on file Sexual Orientation Not on file documented as of this encounter Plan of Treatment Upcoming Encounters Date Type Department Care Team (Late Contact Info) Description 07/17/2025 7:00 AM EST Appointment [facility] [address] [place] [address] 07/17/2025 7:30 AM EST Appointment [facility] [address] [place] [address] 07/17/2025 8:00 AM EST Appointment [facility] [address] [place] [address] 07/17/2025 9:00 AM EST Office Visit [facility] [address] [place] [address] Casimiro Irving, WINDSHIELD TECHNICIAN [address] [facility] [address] [place] [address] documented as of this encounter Procedures Procedure Name Priority Date/Time Associated Diagnosis Comments US OUTSIDE IMAGES 05/09/2025 3:05 PM EDT documented in this encounter Results * US OUTSIDE IMAGES (05/09/2025 3:05 PM EDT) Anatomical Region Laterality Modality Ultrasound 05/09/2025 3:05 PM EDT us External Provider IMG US PROCEDURES Final Result documented in this encounter Visit Diagnoses Not on filedocumented in this encounter
--- NOTE | 2025-06-19 16:42 | CT_ITS ---
PROCEDURE INFORMATION: Exam: CTA Abdominal Aorta and Bilateral Lower Extremities (Run-off) With Contrast Exam date and time: 06/19/2025 5:57 PM Age: 70 years old Clinical indication: Other: Left 2nd toe, concern for ischemia TECHNIQUE: Imaging protocol: Computed tomographic angiography of the of the abdominal aorta, pelvis and bilateral lower extremities with contrast. 3D rendering (Not supervised by radiologist): MIP and/or 3D reconstructed images were created by the technologist. Radiation optimization: All CT scans at this facility use at least one of these dose optimization techniques: automated exposure control; mA and/or kV adjustment per patient size (includes targeted exams where dose is matched to clinical indication); or iterative reconstruction. Contrast material: ISO 370; Contrast volume: 120 ml; Contrast route: INTRAVENOUS (IV); COMPARISON: US CA ARTERIAL DUPLEX LE 05/09/2025 3:05 PM FINDINGS: Aorta: No aortic aneurysm. No aortic dissection. Celiac and mesenteric arteries: No occlusion or significant stenosis. Renal arteries: No occlusion or significant stenosis. Right iliac arteries: No occlusion or significant stenosis. Right femoral/popliteal arteries: No occlusion or significant stenosis. Right infrapopliteal arteries: No occlusion or significant stenosis. Left iliac arteries: No occlusion or significant stenosis. Left femoral/popliteal arteries: No occlusion or significant stenosis. Left infrapopliteal arteries: No occlusion or significant stenosis. Liver: No mass. Gallbladder and biliary ducts: Cholecystectomy. Pancreas: Unremarkable. No mass. No ductal dilation. Spleen: Normal. No splenomegaly. Adrenal glands: Normal. No mass. Kidneys and ureters: Normal. No mass. Stomach and bowel: Unremarkable. No obstruction. No mucosal thickening. Appendix: No evidence of appendicitis. Urinary bladder: Unremarkable. No mass. Reproductive: Unremarkable as visualized. Intraperitoneal space: Unremarkable. No free air. No significant fluid collection. Lymph nodes: No lymphadenopathy. Bones/joints: No acute fracture. No dislocation. Soft tissues: Prominent venous varices are noted in the legs bilaterally.. IMPRESSION: 1. No evidence of significant arterial stenosis. Mild diffuse atherosclerosis. 2. Prominent venous varices are seen in the lower extremities most prominent on the left likely secondary to venous insufficiency. 3. Cholecystectomy.
--- NOTE | 2025-06-19 16:43 | ED_ITS ---
Discharge Plan Disposition Patient Disposition: Home, Self-Care Prescriptions Prescriptions: New Eliquis DVT-PE Treat 30D Start 5 mg (74 tabs) tablets,dose pack See Rx Instructions .ROUTE .COMPLEX Qty: 74 0RF Rx Instructions: orally per package directions No Action ciprofloxacin HCl 0.3 % drops See Rx Instructions ophthalmic (eye) .COMPLEX Qty: 5 0RF Rx Instructions: put 1-2 drps in affected eye(s) every 2hr up to 8 times/day x2days; then 4 times/day x5days ophthalmic (eye) cefuroxime axetil 500 mg tablet 500 mg PO BID Qty: 14 0RF amlodipine [Norvasc] 5 mg tablet 5 mg PO DAILY Qty: 90 1RF lisinopril 20 mg tablet See Rx Instructions .ROUTE .COMPLEX Qty: 90 1RF Dose Instruction: TAKE 1 TABLET BY MOUTH EVERY DAY Rx Instructions: TAKE 1 TABLET BY MOUTH EVERY DAY clopidogrel 75 mg tablet 75 mg PO DAILY Qty: 90 3RF aspirin 81 mg tablet,delayed release (DR/EC) 81 mg PO DAILY Qty: 90 3RF rosuvastatin 20 mg tablet 20 mg PO DAILY Qty: 90 3RF Referrals Follow up/Referrals: Brandy Colorado APRN [Primary Care Provider, Family Practice] - See instructions Activity Restrictions/Add. Instructions Additional Instructions/Restrictions: The vascular surgery team at [facility] will call you in the next few days to schedule a close follow-up appointment. If you receive a call from an unknown number with an [phone] area code, answer it as this may be them calling. The vascular surgery team would like you to stop taking aspirin and to start taking Eliquis instead. You received a dose here in the emergency department but the rest was sent to clinic pharmacy. Pick this up in the morning as discussed. You can continue taking your clopidogrel and the rest of your medications as prescribed, however do not continue to take aspirin. These medications can increase your risk of bleeding, so if you have a fall and sustained head trauma, black stools, bloody vomit, bloody cough, or if you become concerned for your health for any reason, return to the emergency department for evaluation. Clinical Impressions Clinical Impression: Ischemia of toe Print Language Print Language: Chilean Discharge ED Provider: Jose Angel Kelley Adult [facility] General Chief complaint: Extremity Injury, Lower Stated complaint: Sent per Brandy Colorado, Left Foot second toe discolor Time Seen by Provider: 06/19/25 16:34 Mode of Arrival: Ambulatory Source of Information: Patient Description of Symptoms (Recalled from ER Triage Doc. by RN): Pt woke up to her Left foot middle toe discolored this morning. Pt sees vascular at for other vascular issues. Pt PCP told her to bypass primary care and go to the ER History of Present Illness HPI narrative: Edgar Apple is a 70-year-old female with a history of vein and artery issues in her legs on ASA and clopidogrel who presents to the emergency department for concern for color changes to her left second toe. Patient states that she supposed to see a vascular surgeon on 17 July at the [facility] after having testing done to check her veins and arteries . She states that she woke up this morning and had purple discoloration to her left second toe but no pain, numbness or tingling. She states that she does not remember hitting her toe on anything and does not think she sustained any trauma to the area. She called her primary care doctor who told her to come to the emergency department. She also reports 2 weeks of burning pain to her heel and states that the skin broke open this morning. She also reports a history of hypertension. Related Data Previous Rx's ?Medication ?Instructions ?Recorded amlodipine 5 mg tablet (Norvasc) 5 mg PO DAILY #90 tab s 01/10/25 lisinopril 20 mg tablet See Rx Instructions .Route 0 01/10/25 .COMPLEX #90 tabs cefuroxime axetil 500 mg tablet 500 mg PO BID #14 tabs 05/01/25 aspirin 81 mg tablet,delayed 81 mg PO DAILY #90 tabs 0 05/10/25 release clopidogrel 75 mg tablet 75 mg PO DAILY #90 tabs 04/18 12/09 rosuvastatin 20 mg tablet 20 mg PO DAILY #90 tabs 04/18 12/09 ciprofloxacin HCl 0.3 % eye drops See Rx Instructions ophthalmic 05/26/25 (eye) .COMPLEX #5 mL apixaban 5 mg (74 tabs) tablets in See Rx Instructions PO .COMPLEX 06/19/25 a dose pack (Eliquis DVT-PE Treat #74 tabs 30D Start) Allergies Allergy/AdvReac Type Severity Reaction Status Date / Time Penicillins Allergy Severe Unknown Verified 05/26/25 14:49 allergy reaction Sulfa (Sulfonamide Allergy Severe Unknown Verified 05/26/25 14:49 Antibiotics) allergy reaction Opioids - Morphine Analogues Allergy Mild Rash Verified 05/26/25 14:49 tetracycline Allergy Mild Unknown Verified 05/26/25 14:49 allergy reaction codeine AdvReac Severe Unknown Verified 05/26/25 14:49 allergy reaction PFSH PFSH Disclaimer: The information contained in this section may have been updated after the patient was seen, as this information can be updated by other users. Medical History Peripheral arterial disease Claudication Basal cell carcinoma of right upper arm Lung cancer screening declined by patient (~12/13/24) Screening for malignant neoplasm of colon declined (~12/13/24) Breast cancer screening declined (~12/13/24) Neoplasm of skin of upper arm Dizziness SOBOE (shortness of breath on exertion) Neck pain on left side Bilateral impacted cerumen IFG (impaired fasting glucose) Hyperlipidemia Essential hypertension Hypertensive urgency Surgical History Hx of tubal ligation Hx of cholecystectomy Family History Other Diabetes Heart attack Hypertension Social History Smoking Status: Never smoker alcohol intake: never current occupational status: retired Travel in the last 8 weeks?: Inside the [place] Have you lived/traveled outside US in past 30 days?: No Contact w/someone who lives/traveled outside US past 30 days?: No Exposure to someone with infectious disease in past 14 days?: No Do you have a fever (greater than 100.4 F or 38 C)?: No Have you tested positive for COVID-19?: No Exposed to someone with COVID-19 in past 14 days?: No Do you have a sore throat?: No Do you have a cough?: No Do you have any weakness?: No Do you have any diarrhea?: No Are you experiencing any unusual bleeding?: No Do you have any muscle aches/pain?: No Do you have any abdominal pain?: No Are you experiencing loss of taste or smell?: No Other Medical History Have you received the Pneumonia Vaccine: Yes ROS Obtained: Yes Systems reviewed as appropriate & no additional complaints except as documented Physical Exam General General appearance: alert and in no apparent distress Head Head exam: atraumatic Eye Eye exam: Present normal appearance ENT ENT exam: Present normal external ear exam Neck Neck exam: Present full ROM Chest Chest inspection: Present symmetric chest wall rise Respiratory Respiratory exam: Present normal lung sounds bilaterally; Absent respiratory distress Cardiovascular Cardiovascular exam: Present regular rate and normal rhythm Abdominal Exam Abdominal exam: Present soft; Absent tenderness or guarding Extremities Exam Extremities exam: Present normal inspection Expanded Lower Extremity Exam Left: Top foot image: 2 1. Purple discoloration, non-blanching Bottom foot image: 2 1. Purple discoloration, does not dawit Back Exam Back exam: Present normal inspection Neurological Exam Neurological exam: Present alert and oriented X3 Psychiatric Psychiatric exam: Present normal affect Skin Skin exam: Present warm and dry Medical Decision Making Medical Records Screening: Per USPSTF and CDC recommendations, given the prevalence of disease in our region, it is our hospital?s policy to screen for HIV and viral Hepatitis for all patients aged 18 and over and those with ongoing risk factors. Raymond Inquiry Pt receiving controlled substance: No Vital Signs: 06/19/25 16:32 06/19/25 16:37 06/19/25 19:34 Temperature 98.2 F 98.2 F Temperature Source Oral Oral Pulse Rate 80 80 Pulse Rate [Right] 80 Respiratory Rate 16 16 16 Blood Pressure 160/68 H 142/68 H Blood Pressure [Right Arm] 160/68 H Blood Pressure Mean [Right Arm] 98 Blood Pressure Source Automatic Cuff Blood Pressure Source [Right Arm] Automatic Cuff Blood Pressure Position Sitting Sitting Blood Pressure Position [Right Arm] Sitting 02 Sat by Pulse Oximetry 99 97 99 Oxygen Delivery Method Room Air Room Air Room Air 06/19/25 19:52 Temperature 98.9 F Temperature Source Pulse Rate 80 Pulse Rate [Right] Respiratory Rate 18 Blood Pressure 140/80 Blood Pressure [Right Arm] Blood Pressure Mean [Right Arm] Blood Pressure Source Automatic Cuff Blood Pressure Source [Right Arm] Blood Pressure Position Sitting Blood Pressure Position [Right Arm] 02 Sat by Pulse Oximetry Oxygen Delivery Method Room Air Lab Data Lab Results 06/19/25 16:59: WBC 12.8 H, RBC 4.27, Hgb 13.4, Hct 40.9, MCV 95.8, MCH 31.4 H, MCHC 32.8, RDW 13.1, Plt Count 414, MPV 9.4, Neut % (Auto) 62.1, Lymph % (Auto) 27.8, [place] % (Auto) 6.0, Eos % (Auto) 2.8, Baso % (Auto) 1.0, Neut # (Auto) 7.9 H, Lymph # (Auto) 3.5, [place] # (Auto) 0.8, Eos # (Auto) 0.4, Baso # (Auto) 0.1, PT 11.0, INR 0.99, APTT 27.9, Sodium 136, Potassium 4.0, Chloride 104, Carbon Dioxide 23, Anion Gap 13.0, BUN 14, Creatinine 0.80, Estimated Creat Clear 73, Estimated GFR 71, Est GFR ( Amer) 86, Glucose 119 H, Calcium 9.3, Total Bilirubin 0.7, AST 31, ALT 22, Alkaline Phosphatase 122, Total Creatine Kinase 46, Total Protein 8.6 H, Albumin 4.7, Globulin 3.9 H, Albumin/Globulin Ratio 1.2 06/19/25 16:59 06/19/25 16:59 Orders (Tests/Meds): ED MEDICATIONS Discontinued Medications Generic Name Dose Route Start Last Admin Trade Name Freq PRN Reason Stop Dose Admin Apixaban 10 mg 06/19/25 19:41 06/19/25 19:50 Apixaban 5mg Tablet PO 06/19/25 19:42 10 mg ONCE ONE Administration Erythromycin 1 gm 06/19/25 19:45 06/19/25 19:54 Erythromycin Base 1 Gm Oint...G. OP 06/19/25 19:46 1 gm ONCE ONE Administration Iopamidol 120 ml 06/19/25 18:03 06/19/25 18:04 Iopamidol-370 (76%);100ml Bottle IV 06/19/25 18:04 120 ml ONCE ONE Administration Sodium Chloride 10 ml 06/19/25 18:03 06/19/25 18:04 Sodium Chloride 0.9% 10ml Syr (Rad Only) IV 07/19/25 18:02 10 ml NEEDED PRN Administration Maintain IV Site Sodium Chloride 100 ml 06/19/25 18:03 06/19/25 18:04 0.9 % Sodium Chloride 50 Ml Vial IV 06/19/25 18:04 100 ml ONCE ONE Administration ORDERS Category Date Time Status CT angio abdomen/femoral Stat Cat Scan 06/19/25 16:42 Completed CBC w/Auto Diff [Complete Blood Count Auto Diff] Stat Lab 06/19/25 16:59 Completed CK [Creatine Kinase] Stat Lab 06/19/25 16:59 Completed CMP [Comprehensive Metabolic Panel] Stat Lab 06/19/25 16:59 Completed PT INR [Prothrombin Time INR] Stat Lab 06/19/25 16:59 Completed PTT [Activated Partial Thrombo Time] Stat Lab 06/19/25 16:59 Completed Medical Decision Narrative: Edgar Apple is a 70-year-old female with a history of vein and artery issues in her legs on ASA and clopidogrel who presents to the emergency department for concern for color changes to her left second toe. Patient states that she supposed to see a vascular surgeon on 17 July at the [facility] after having testing done to check her veins and arteries . She states that she woke up this morning and had purple discoloration to her left second toe but no pain, numbness or tingling. She states that she does not remember hitting her toe on anything and does not think she sustained any trauma to the area. She called her primary care doctor who told her to come to the emergency department. She also reports 2 weeks of burning pain to her heel and states that the skin broke open this morning. She also reports a history of hypertension. On arrival, patient is hypertensive with blood pressure 160/68, heart rate 80 bpm, afebrile, oxygen saturation 97% on room air. Physical exam, stated above, revealed overall well-appearing female in no distress. She has purple discoloration to the majority of her left second toe. Sensation is grossly intact. The purple discoloration is circumferential around the toe. It does not dawit. She has 1+ DP pulse. No palpable PT pulse. She has skin cracking at the base of the calcaneus. She has significant amount of varicose veins throughout the calf. Patient does state that she has a history of pain in her left leg Differential diagnosis includes, but is not limited to: Arterial occlusion/ischemia, peripheral arterial disease, venous stasis, bruising, fracture, among others. The most morbid conditions were considered and workup was based on these. Due to concern for peripheral arterial disease and ischemia, will obtain CT abdomen pelvis with runoff to the left lower extremity. Will also obtain CBC with differential, CMP, lactate, CK. Patient's workup showed mildly elevated white blood cell count of 12.8, hemoglobin and hematocrit normal, platelets within normal limits, coagulation studies within normal limits. Electrolytes within normal limits. Kidney function normal. CK normal at 46. CTA with runoff shows no evidence of significant arterial stenosis. She does have some atherosclerosis in the lower extremities and varices consistent with venous insufficiency. See final radiology report for details. I spoke with Dr. Meadows at the [facility] who spoke with Dr. 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 They will call the patient to schedule an earlier appointment. This plan was discussed with her and she was in agreement with this plan. Given this, patient was given 10 mg of Eliquis here in the emergency department and a prescription was sent to clinic pharmacy. Charge nurse called pharmacy and left a voicemail for prior authorization. I did give her strict return precautions for any evidence of bleeding, head trauma. Secondarily, she does state that she has issues with dry eyes and photophobia in her left eye over the past 20 years and usually takes eyedrops. Her physical exam is reassuring at this time with pupils equal round and reactive and no foreign bodies are appreciated. Will send patient with erythromycin ointment for lubrication and if there is evidence of a small corneal abrasion, I will help with that as well. Critical Care Critical Care Time Critical Care Time: No
[2025-06-19 17:07] LABS: Hematocrit 40.9 % (37.0-47.0); Hemoglobin 13.4 g/dL (12.2-16.2); Immature Granulocytes % 0.3 %; Mean Corpuscular HGB Conc 32.8 g/dL (31.8-35.4); Mean Corpuscular Hemoglobin 31.4 pg (27.0-31.2); Mean Corpuscular Volume 95.8 fl (81-99); Nucleated Red Blood Cells % 0 %; Platelet Count 414 K/mm3 (142-424); Red Blood Count 4.27 M/mm3 (4.20-5.40); Red Cell Distribution Width-SD 45.5 fL; White Blood Count 12.8 K/mm3 (4.8-10.8)
[2025-06-19 17:34] LABS: Activated Partial Thrombo Time 27.9 seconds (22.8-30.6); INR 0.99 (0.9-1.1); Prothrombin Time 11.0 seconds (10.1-12.5)
[2025-06-19 17:40] LABS: Alanine Aminotransferase 22 U/L (12-78); Albumin Level 4.7 g/dl (3.5-5.0); Albumin/Globulin Ratio 1.2 (1.1-1.8); Alkaline Phosphatase 122 U/L (38-126); Anion Gap 13.0 mEq/L (5-15); Aspartate Amino Transferase 31 U/L (14-36); Bilirubin,Total 0.7 mg/dl (0.2-1.3); Blood Urea Nitrogen 14 mg/dl (7-17); Calcium 9.3 mg/dl (8.4-10.2); Carbon Dioxide 23 mmol/L (22.0-30.0); Chloride 104 mmol/L (98-107); Creatine Kinase 46 U/L (30-135); Creatinine Clearance Estimated 73 mL/min (50-200); Creatinine,Serum 0.80 mg/dl (0.52-1.04); Estimated Glomerular Filt Rate 71 ml/min (>60); GFR (African American) 86 ML/MIN (>60); Globulin 3.9 g/dL (1.3-3.2); Glucose 119 mg/dl (74-100); Potassium 4.0 mmoL/L (3.5-5.1); Sodium 136 mmol/L (136-145); Total Protein,Serum 8.6 g/dl (6.3-8.2)
[2025-06-19] MEDS: SODIUM CHLORIDE 0.9% 10ML SYR (RAD ONLY) 10 ML IV (18:04)
[2025-06-19] MEDS: 0.9 % SODIUM CHLORIDE 50 ML VIAL 100 ML IV (18:04)
[2025-06-19] MEDS: IOPAMIDOL-370 (76%);100ML BOTTLE 120 ML IV (18:04)
--- NOTE | 2025-06-19 18:57 | PC.NURSE ---
Called [facility] per Dr Kelley for a consult with vascular Images were power shared and [facility] would call back
[2025-06-19 19:34] VITALS: BP 142/68; PULSE 80; RESP 16; O2SAT 99
[2025-06-19] MEDS: APIXABAN 5MG TABLET 10 MG PO (19:50)
[2025-06-19 19:52] VITALS: BP 140/80; PULSE 80; RESP 18; TEMP 37.2; O2SAT 100
[2025-06-19] MEDS: ERYTHROMYCIN BASE 1 GM OINT...G. OP (19:54)
--- NOTE | 2025-06-20 11:35 | CARE MANAGER ---
Spoke with clinic pharmacy. No issues with Eliquis prescription.
== END 2025-06-19 20:00 | disposition home or self-care (01) ==
PROVIDERS: Emergency Provider Student in an Organized Health Care Education/Training Program; PCP Nurse Practitioner
DX: I99.8 Other disorder of circulatory system (principal); I10 Essential (primary) hypertension; I73.9 Peripheral vascular disease, unspecified; E78.5 Hyperlipidemia, unspecified
CPT/HCPCS: 75635; 80053; 82550; 85025; 85610; 85730; 99284; Q9967